=== PATIENT | male | born 1945 | race Caucasian/White ===

== ENCOUNTER 2017-09-01 10:30 | Outpatient (CLI) | payer MEDICARE ==
[2017-09-01] MEDS ORDERED: ISOVUE-370 76%-LOCM 1 ML ONE (14:41)
== END 2017-09-01 10:31 | disposition home or self-care (01) ==
LOC: BICCT 10:30
PROVIDERS: ATTEND Otolaryngology Plastic Surgery within the Head & Neck
DX: K11.20 Sialoadenitis, unspecified (principal); D49.0 Neoplasm of unspecified behavior of digestive system
CPT/HCPCS: 70491; 82565

== ENCOUNTER 2018-05-18 16:10 | Inpatient (IN) | payer MEDICARE ==
[2018-05-18 17:06] LABS: Troponin I 0.102 ng/mL (< 0.028)
[2018-05-18 17:23] LABS: Bilirubin Small (Negative); Blood, Urine Trace (Negative); Clarity CLOUDY (Clear); Glucose, Urine (Dipstick) Negative (Negative); Leukocyte Negative (Negative); Nitrite Negative (Negative); Protein, Urine (Dipstick) 100 mg/dL (Neg-Trace)
[2018-05-18 17:25] LABS: RBC/HPF 0-3 HPF (0-3); Squamous Epithelial 0-3 HPF (0-3)
[2018-05-18 17:28] LABS: Pathc Cast-AUWi Flag 5.16 (0-2.49)
[2018-05-18 17:43] LABS: Bacteria/HPF Rare-Few HPF (None Seen); Renal Epithelial 0-3 HPF (0-3)
[2018-05-18 17:44] LABS: Other Casts/LPF 0-3 COARSE GRAN LPF (0-3 Hyaline)
[2018-05-18] MEDS ORDERED: Ondansetron ODT 4 MG TAB SL PRN (19:43)
[2018-05-18] MEDS ORDERED: Ondansetron PF 4 MG/2 ML Vial IVP PRN (19:43)
[2018-05-18] MEDS ORDERED: Acetaminophen 325 MG TAB PO PRN (19:43)
[2018-05-18] MEDS ORDERED: Sodium Chloride 0.9% 1,000 ML IV SCH (19:43)
[2018-05-18 19:55] LABS: Troponin I 0.087 ng/mL (< 0.028)
[2018-05-18 20:01] VITALS: BMI 24.3
[2018-05-18] MEDS ORDERED: Carvedilol 6.25 MG TAB PO SCH (22:15)
[2018-05-18 23:30] LABS: Troponin I 0.072 ng/mL (< 0.028)
[2018-05-19] MEDS ORDERED: Senokot S 8.6-50 MG TAB PO PRN (02:54)
[2018-05-19] MEDS ORDERED: Acetaminophen 325 MG TAB PO PRN (02:54)
[2018-05-19] MEDS ORDERED: Guaifenesin DM 100-10/5 ML UDCUP PO PRN (02:54)
[2018-05-19] MEDS ORDERED: Morphine 2 MG/ML SYRINGE SLOW IVP PRN (02:55)
[2018-05-19] MEDS ORDERED: Furosemide 20 MG/2 ML VIAL SLOW IVP SCH (03:00)
--- NOTE | 2018-05-19 03:45 | HP ---
REASON FOR ADMISSION: CHF exacerbation, copd exacerbation. HISTORY OF PRESENTING ILLNESS: The patient gives history of having increasing cough with coughing up bloody stuff per patient from last 2 days. He is also getting short of breath on minimal exertion like even 50 yards. He had some mild chest discomfort yesterday and felt bloated in his chest per patient on the left side. No pain as such. No complaints of palpitation. He has known history of heart failure and follows up with Dr. Tobin in [place]. His last checkup was six months back. The patient does not recall the exact ejection fraction but knows that his heart is weak, and he has had prior hospitalization for heart failure. No complaints of fever, but had a temperature of 100.3 on arrival here. PAST MEDICAL AND SURGICAL HISTORY: History of CABG for one-vessel disease in the year 1989 at [facility]. He has had AICD with a pacemaker placed for low ejection fraction. 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 Left lung nodule, which was followed up and apparently is decreasing in size. CURRENT MEDICATIONS: Takes, 1. Coreg 6.25 mg twice daily. 2. Aspirin 81 mg daily. 3. Potassium chloride 20 mEq p.o. daily. 4. Enalapril 10 mg twice daily. 5. Lasix 40 mg p.o. daily. ALLERGIES: ALLERGIC TO PREVNAR 13 WITH WHICH HE DEVELOPED RIGHT SHOULDER PAIN. PERSONAL HISTORY: Quit smoking in 1988, but has smoked 2 to 3 packs a day of cigarettes and cigars for nearly 30 to 35 years prior to that. Does not abuse alcohol or drugs. FAMILY HISTORY: Mother at the age of 83 from natural causes. Father of massive IL at the age of 68 years. CODE STATUS: Full. REVIEW OF SYSTEMS: CONSTITUTIONAL: Negative for weight loss or gain, ability to conduct usual activities. SKIN: Negative for rash, itching. EYES: Negative for double vision, pain. ENT/MOUTH: Negative for nose bleeding, neck stiffness, pain, tenderness. CARDIOVASCULAR: Negative for palpitations, dyspnea on exertion, orthopnea. RESPIRATORY: Negative for shortness of breath, wheezing, cough, hemoptysis, fever or night sweats. GASTROINTESTINAL: Negative for poor appetite, abdominal pain, heartburn, nausea , vomiting, constipation, or diarrhea. GENITOURINARY: Negative for urgency, frequency, dysuria, nocturia. MUSCULOSKELETAL: Negative for pain, swelling. NEUROLOGIC/PSYCHIATRIC: Negative for anxiety, depression. ALLERGY/IMMUNOLOGIC: Negative for skin rash, bleeding tendency. Please see short and difficult for urgency, frequency, dysuria, nocturia. MUSCULOSKELETAL: Negative for pain, swelling. NEUROLOGIC/PSYCHIATRIC: Negative for anxiety, depression. ALLERGY/IMMUNOLOGIC: Negative for skin rash, bleeding tendency. PHYSICAL EXAMINATION: GENERAL: The patient is a 72-year-old male, who is currently not in any acute distress. VITAL SIGNS: Blood pressure 116/86, pulse 110 per minute, respiratory rate 22 per minute, temperature 100.3 degrees Fahrenheit, saturating 98% on room air. NECK: Supple. No elevated JVD. HEENT: Eyes; extraocular muscles intact. Pupils are reacting to light. Oral cavity, mucous membranes are moist. No exudates or congestion. CARDIOVASCULAR: S1 and S2 heard. Regular rhythm. RESPIRATORY: Air entry 1+ bilateral. Scattered wheezes plus there is basal rales plus. ABDOMEN: Soft. Bowel sounds heard. No tenderness, rigidity, or guarding. EXTREMITIES: No peripheral edema or calf tenderness. VASCULAR SYSTEM: Peripheral pulses 1+ bilateral. No ischemic ulcerations or gangrene. CENTRAL NERVOUS SYSTEM: No gross focal deficits noted. NEUROLOGIC: The patient is alert, awake, oriented well. PSYCHIATRIC: The patient's mood is euthymic. No hallucinations or delusions. LABORATORY DATA: EKG done shows a paced rhythm at 109 beats per minute. White count of 14, H and H 13 and 40, platelet count 191 with 79% neutrophils. BUN 27 and creatinine 1.20. BNP 2678. Troponin I is indeterminate, peaking up to 0.10. CK-MB 0.9. Albumin is 3.9. Influenza A and B antigens are negative. Chest x-ray done shows no acute cardiopulmonary abnormality. CLINICAL IMPRESSION AND PLAN: The patient will be admitted to telemetry for acute congestive heart failure exacerbation with mild chronic obstructive pulmonary disease exacerbation. The patient's systolic blood pressure is between 100 to 110. In view of this, he will be gently diuresed with Lasix. He will also be on DuoNeb q.6 hourly, empiric Levaquin in view of fever, cough with hemoptysis, and prior history of heavy smoking. We will place him on a small dose of steroids along with nebulization. He will be on aspirin, Coreg 3.125 mg twice daily, and lisinopril 2.5 mg daily. Echo with 2D Doppler for LV function will be obtained. We will also obtain a CT chest without contrast to look for any lesions with the patient's heavy history of smoking and prior history of lung nodule. Job ID: [id number] [facility]
[2018-05-19] MEDS: Furosemide 20 MG/2 ML VIAL SLOW IVP SCH ×2 (04:59→15:06)
[2018-05-19] MEDS: methylPREDNISolone Sod Succ 40 MG VIAL IVP SCH ×3 (05:01→20:00)
[2018-05-19] MEDS: Bacteriostatic Water 30 ML VIAL IVP SCH ×3 (05:01→20:00)
[2018-05-19 05:31] LABS: #Lymphocytes 0.7 thou/uL (1.20-3.40); #Monocytes 1.3 thou/uL (0.11-0.59); #Neutrophils 7.3 thou/uL (1.40-6.50); %Basophils 0.1 % (0.0-1.0); %Eosinophils 0.4 % (0.0-10.0); %Lymphocytes 7.4 % (21.0-51.0); %Monocytes 13.7 % (0.0-10.0); %Neutrophils 78.4 % (42.0-75.0); Hemoglobin 11.8 g/dL (14.0-18.0); Mean Corpuscular HGB CONC 32.8 g/dL (32.0-36.0); Mean Corpuscular Hemoglobin 29.9 pg (27.0-31.0); Mean Platelet Volume 8.5 fL (7.4-10.4); Platelet Count 145 thou/uL (130-400); RBC Distribution Width 13.1 % (11.5-14.5); Red Blood Cell (RBC) Count 3.94 mill/uL (4.70-6.10); White Blood Cell (WBC) Count 9.3 thou/uL (4.8-10.8)
[2018-05-19 05:50] LABS: Anion Gap 10 mmol/L (10-20); BUN (Urea Nitrogen) 28 mg/dL (8.4-25.7); Calc. Creatinine Clearance 71 mL/min (70-130); Calcium 8.7 mg/dL (7.8-10.44); Carbon Dioxide 26 mmol/L (23-31); Chloride 105 mmol/L (98-107); Estimated GFR-MDRD 71; Glucose 154 mg/dL (80-115); Sodium 137 mmol/L (136-145)
[2018-05-19] MEDS ORDERED: Metoclopramide HCl 10 MG/2 ML VIAL IVP PRN (07:42)
[2018-05-19] MEDS ORDERED: Loperamide HCl 2 MG CAP PO PRN (07:42)
[2018-05-19] MEDS ORDERED: hydrALAZINE 20 MG/ML VIAL SLOW IVP PRN (07:42)
[2018-05-19] MEDS ORDERED: Loratadine 10 MG TAB PO PRN (07:42)
[2018-05-19] MEDS ORDERED: Zolpidem Tartrate 5 MG TAB PO PRN (07:42)
[2018-05-19] MEDS ORDERED: Eucerin (Mineral Oil/Petrolatum,White) 30 gm Jar TOP PRN (07:42)
[2018-05-19] MEDS ORDERED: Cepastat Lozenges 1 LOZ PO PRN (07:42)
[2018-05-19] MEDS ORDERED: Diabetic Tussin 200 MG/10 ML UDCUP PO PRN (07:42)
[2018-05-19] MEDS ORDERED: Sodium Chloride 0.65% Nasal 44 ML BOT EA NARE PRN (07:42)
[2018-05-19] MEDS ORDERED: Artificial Tears 18 DROP/0.9 ML EA EYE PRN (07:42)
--- NOTE | 2018-05-19 09:55 | CT ---
FCT thorax noncontrast: 05/19/2018 HISTORY: 72-year-old male with cough and hemoptysis. Pulmonary nodule. COMPARISON: 12/05/2013 FINDINGS: The previously described 1.3 x 1.1 cm noncalcified pulmonary nodule in the left lower lobe is unchang ed, and therefore benign. There is a new finding of broad region of alveolar infiltrate-like density at the posterior aspect of the right lower lobe, mostly involving basilar segment. This does not involve the superior segment o f the right lower lobe. The cardiac size is increased, larger than on the previous CT. Pacemaker again noted. New tiny right pleural effusion. No pulmonary edema. Multiple mildly and moderately enlarged mediastinal lymph nodes , larger and more numerous than previously. For example, the previously mentioned 0.8 x 1.3 cm right paratracheal lymph node currently measures 2.5 x 2 cm. IMPRESSION: 1. Right lower lobe infiltrate. 2. Small right pleural effusion. 3. Cardiomegaly. 4. Mediastinal lymphadenopathy. 5. Left lower lobe pulmonary nodule is unchanged and benign.
--- NOTE | 2018-05-19 10:29 | PDOC.PN ---
- Subjective Encounter Start Date: 05/19/18 Encounter Start Time: 08:00 Patient seen and examined. No new complaints. No overnight events - Objective Resuscitation Status - Order Detail: 05/19/18 02:51 Resuscitation Status Routine Resuscitation Status: FULL: Full Resuscitation MAR Reviewed: Yes Vital Signs & Weight: Vital Signs (12 hours) Temp Pulse Resp BP Pulse Ox 05/19/18 06:44 97 20 05/19/18 04:11 94 L 05/19/18 04:00 99.2 F 87 17 92/64 95 Weight Weight 164 lb 11.2 oz Result Diagrams: 05/19/18 04:57 05/19/18 04:56 Radiology Reviewed by me: Yes EKG Reviewed by me: Yes Phys Exam - Physical Examination Constitutional: NAD HEENT: PERRLA, moist MMs, sclera anicteric Neck: no JVD, supple Respiratory: no wheezing, no rales, no rhonchi Cardiovascular: no significant murmur, no rub Gastrointestinal: soft, non-tender, no distention, positive bowel sounds Musculoskeletal: no edema, pulses present Neurological: non-focal, normal sensation Lymphatic: no nodes Psychiatric: normal affect, A&O x 3 Skin: no rash, normal turgor Dx/Plan (1) Acute on 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 failure Code(s): I50.43 - ACUTE ON CHRONIC COMBINED SYSTOLIC AND DIASTOLIC HRT FAIL Status: Acute (2) Type [address] elevation Code(s): I21.A1 - MYOCARDIAL INFARCTION TYPE 2 Status: Acute (3) AICD (automatic cardioverter/defibrillator) present Code(s): Z95.810 - PRESENCE OF AUTOMATIC (IMPLANTABLE) CARDIAC DEFIBRILLATOR Status: Chronic (4) Anemia, normocytic normochromic Code(s): D64.9 - ANEMIA, UNSPECIFIED Status: Chronic (5) CAD (coronary artery disease) Code(s): I25.10 - ATHSCL HEART DISEASE OF [place] CORONARY ARTERY W/O ANG PCTRS Status: Chronic (6) H/O solitary pulmonary nodule Code(s): Z87.898 - PERSONAL HISTORY OF OTHER SPECIFIED CONDITIONS Status: Chronic (7) Hypertension Code(s): I10 - ESSENTIAL (PRIMARY) HYPERTENSION Status: Chronic (8) Hyperuricemia Code(s): E79.0 - HYPERURICEMIA W/O SIGNS OF INFLAM ARTHRIT AND TOPHACEOUS DIS Status: Chronic (9) Tobacco abuse Code(s): Z72.0 - TOBACCO USE Status: Chronic (10) Pneumonia Code(s): J18.9 - PNEUMONIA, UNSPECIFIED ORGANISM Status: Acute - Plan cont current plan of care, continue antibiotics * medication reviewed as below * symptomatic treatment * continue levaquin * continue lasix * echo pending. * allopurinol daily Review of Systems - Review of Systems ENT: negative: Ear Pain, Ear Discharge, Nose Pain, Nose Discharge, Nose Congestion, Mouth Pain, Mouth Swelling, Throat Pain, Throat Swelling, Other Respiratory: negative: Cough, Dry, Shortness of Breath, Hemoptysis, SOB with Excertion, Pleuritic Pain, Sputum, Wheezing Cardiovascular: negative: chest pain, palpitations, orthopnea, paroxysmal nocturnal dyspnea, edema, light headedness, other Gastrointestinal: negative: Nausea, Vomiting, Abdominal Pain, Diarrhea, Constipation, Melena, Hematochezia, Other Genitourinary: negative: Dysuria, Frequency, Incontinence, Hematuria, Retention , Other Musculoskeletal: negative: Neck Pain, Shoulder Pain, Arm Pain, Back Pain, Hand Pain, Leg Pain, Foot Pain, Other Skin: negative: Rash, Lesions, Jeovany, Bruising, Other - Medications/Allergies Allergies/Adverse Reactions: Allergies Allergy/AdvReac Type Severity Reaction Status Date / Time pneumococcal vaccine Allergy Verified 05/18/18 19:56 [From Prevnar 13 (PF)] Medications: Current Medications Acetaminophen (Tylenol) 650 mg PO Q4H PRN PRN Reason: Headache/Fever/Mild Pain (1-3) Albuterol/Ipratropium (Duoneb) 3 ml NEB [id number] [facility] Last Admin: 05/19/18 06:44 Dose: 3 ml Allopurinol (Zyloprim) 100 mg PO DAILY [facility] Artificial Tears (Tears Naturale) 2 drop EA EYE PRN PRN PRN Reason: Dry Eyes Aspirin (Aspirin Chewable) 81 mg PO DAILY [facility] Carvedilol (Coreg) 3.125 mg PO BID [facility] Enoxaparin Sodium (Lovenox) 40 mg SC 0900 [facility] Famotidine (Pepcid) 20 mg PO BID [facility] Furosemide (Lasix) 20 mg SLOW IVP 0600,1400 [facility] Last Admin: 05/19/18 04:59 Dose: Not Given Guaifenesin (Robitussin Sf) 200 mg PO Q4H PRN PRN Reason: Cough Guaifenesin/Dextromethorphan (Robitussin Dm) 15 ml PO Q4H PRN PRN Reason: Cough Hydralazine HCl (Apresoline) 10 mg SLOW IVP Q4H PRN PRN Reason: SBP > 180 and HR < 70 Levofloxacin 500 mg/ Device 100 mls @ 100 mls/hr IVPB Q24HR [facility] Last Admin: 05/19/18 03:16 Dose: 100 mls Lisinopril (Zestril) 2.5 mg PO DAILY [facility] Loperamide HCl (Imodium) 2 mg PO PRN PRN PRN Reason: Diarrhea/Loose Stools Loratadine (Claritin) 10 mg PO DAILYPRN PRN PRN Reason: Sinus Symptoms Methylprednisolone Sodium Succinate (Solu-Medrol) 20 mg IVP Q8HR [facility] Last Admin: 05/19/18 05:01 Dose: 20 mg Metoclopramide HCl (Reglan) 5 mg IVP Q4H PRN PRN Reason: Nausea Mineral Oil/White Petrolatum (Eucerin Cream) 0 gm TOP BIDPRN PRN PRN Reason: Dry Skin Morphine Sulfate (Morphine) 2 mg SLOW IVP Q4H PRN PRN Reason: Chest Pain/BP Elevations Senna/Docusate Sodium (Senokot S) 2 tab PO BID PRN PRN Reason: Constipation Sodium Chloride (Flush - Normal Saline) 10 ml IVF Q12HR [facility] Sodium Chloride (Flush - Normal Saline) 10 ml IVF PRN PRN PRN Reason: Saline Flush Sodium Chloride ([place] Nasal [place] 0.65%) 0 ml EA NARE QIDPRN PRN PRN Reason: Nasal Congestion Sterile Water (Bacteriostatic Water) 1 ml IVP Q8HR [facility] Last Admin: 05/19/18 05:01 Dose: 1 ml Throat Lozenges (Cepastat Lozenges) 1 tia PO Q2H PRN PRN Reason: Sore Throat Zolpidem Tartrate (Ambien) 5 mg PO HSPRN PRN PRN Reason: Insomnia
[2018-05-19] MEDS: Famotidine 20 MG TAB PO SCH ×2 (10:37→19:57)
[2018-05-19] MEDS: Aspirin Chewable 81 MG TAB PO SCH (10:37)
[2018-05-19] MEDS: Enoxaparin Sodium 40 MG/0.4 ML SYRINGE SC SCH (10:38)
[2018-05-19] MEDS: Allopurinol 100 MG TAB PO SCH (10:40)
[2018-05-19] MEDS: Lisinopril 2.5 MG TAB PO SCH (10:40)
[2018-05-19] MEDS: Carvedilol 3.125 MG TAB PO SCH ×2 (10:40→19:57)
--- NOTE | 2018-05-19 21:16 | CON ---
DATE OF CONSULTATION: 05/19/2018 REASON FOR CONSULTATION: Ojtkg-zq-nfdohia systolic heart failure. HISTORY OF PRESENT ILLNESS: Mr. Carter is a 72-year-old gentleman with previous history of CAD, status post bypass surgery and ischemic cardiomyopathy. He is mainly followed in [place]. His main complaint is shortness of breath. No lower extremity edema present. No chest pain noted. He has had decreased exercise tolerance. He mainly had increase in abdominal girth. He was seen in [place] and was recommended he proceed to the emergency room. PAST MEDICAL HISTORY: As above including the parotid mass, but patient has opted not to have any workup, hypertension, hyperlipidemia, vasectomy. HOME MEDICATIONS: 1. Coreg. 2. Aspirin. 3. Potassium. 4. Enalapril. 5. Lasix. ALLERGIES: PREVNAR. SOCIAL HISTORY: Previous tobacco use. FAMILY HISTORY: Negative for CAD. REVIEW OF SYSTEMS: Ten-point review of systems is reviewed and as above, otherwise negative. PHYSICAL EXAMINATION: GENERAL: Patient is a pleasant male who is in no acute distress. The patient appears their stated age. VITAL SIGNS: Blood pressure 99/64, pulse 90, temperature 98.1. NEUROLOGIC: The patient is alert and oriented x3 with no focal neurologic deficits. HEENT: Sclerae without icterus. Mouth has moist mucous membranes with normal pallor. NECK: No JVD. Carotid upstroke brisk. No bruits bilaterally. LUNGS: Crackles noted bilaterally. BACK: No scoliosis or kyphosis. CARDIAC: Regular rate and rhythm with normal S1 and S2. No S3 or S4 noted. No significant rubs, murmurs, thrills, or gallops noted throughout the precordium. PMI is not displaced. There is no parasternal heave. ABDOMEN: Soft, nontender, nondistended. No peritoneal signs present. No hepatosplenomegaly. No abnormal striae. EXTREMITIES: 2+ femoral and 2+ dorsalis pedis pulses. No cyanosis, clubbing, or edema. SKIN: No gross abnormalities. PERTINENT LABORATORY DATA: Hemoglobin 11.8, hematocrit 35.9, creatinine 1.03. Peak troponin 0.087. Echo Doppler shows LVEF 10-15 percent. IMPRESSION: 1. Rlyry-jp-adarkpu systolic heart failure. 2. Ischemic cardiomyopathy. 3. Hypotension. RECOMMENDATIONS: 1. Continue Coreg as prescribed. 2. Recommend Lasix at a lower dose given blood pressure. 3. Restrict fluids and sodium. 4. Educate on sodium restriction and fluid restriction at home. Job ID: [id number]
[2018-05-20] MEDS: Furosemide 20 MG/2 ML VIAL SLOW IVP SCH ×2 (05:24→13:56)
[2018-05-20] MEDS: Bacteriostatic Water 30 ML VIAL IVP SCH (05:25)
[2018-05-20] MEDS: methylPREDNISolone Sod Succ 40 MG VIAL IVP SCH (05:25)
[2018-05-20] MEDS: Famotidine 20 MG TAB PO SCH (10:57)
[2018-05-20] MEDS: Carvedilol 3.125 MG TAB PO SCH ×2 (10:58→20:45)
[2018-05-20] MEDS: Aspirin Chewable 81 MG TAB PO SCH (10:58)
[2018-05-20] MEDS: Enoxaparin Sodium 40 MG/0.4 ML SYRINGE SC SCH (10:59)
[2018-05-20] MEDS: Allopurinol 100 MG TAB PO SCH (10:59)
[2018-05-20] MEDS: Lisinopril 2.5 MG TAB PO SCH (11:05)
--- NOTE | 2018-05-20 11:09 | PDOC.PN ---
- Subjective Encounter Start Date: 05/20/18 (f/u pneumonia) Encounter Start Time: 11:08 Subjective: Pt reports feeling a lot better. Had upper abd pain on admission and -: states this is improved. Denies any n/v/significant cough or other -: concerns. - Objective Resuscitation Status - Order Detail: 05/19/18 02:51 Resuscitation Status Routine Resuscitation Status: FULL: Full Resuscitation Vital Signs & Weight: Vital Signs (12 hours) Temp Pulse Resp BP Pulse Ox 05/20/18 07:36 89 16 05/20/18 03:52 97.5 F L 93 16 100/69 98 05/20/18 00:38 92 16 94 L Weight Weight 172 lb 14.4 oz I&O: 05/19/18 05/20/18 05/21/18 06:59 06:59 06:59 Intake Total 840 Output Total 1100 Balance -260 Result Diagrams: 05/19/18 04:57 05/19/18 04:56 EKG Reviewed by me: Yes (tele pacemaker 80-90's) Phys Exam - Physical Examination Constitutional: NAD Respiratory: no wheezing, no rales, no rhonchi Cardiovascular: RRR, no significant murmur Gastrointestinal: soft, non-tender, no distention, positive bowel sounds Musculoskeletal: no edema Neurological: non-focal Psychiatric: normal affect Skin: no rash Dx/Plan (1) Acute on 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 failure Code(s): I50.43 - ACUTE ON CHRONIC COMBINED SYSTOLIC AND DIASTOLIC HRT FAIL Status: Acute (2) Pneumonia Code(s): J18.9 - PNEUMONIA, UNSPECIFIED ORGANISM Status: Acute Qualifiers: Laterality: right Lung location: lower lobe of lung (3) CAD (coronary artery disease) Code(s): I25.10 - ATHSCL HEART DISEASE OF [place] CORONARY ARTERY W/O ANG PCTRS Status: Chronic (4) Hypertension Code(s): I10 - ESSENTIAL (PRIMARY) HYPERTENSION Status: Chronic (5) Hyperuricemia Code(s): E79.0 - HYPERURICEMIA W/O SIGNS OF INFLAM ARTHRIT AND TOPHACEOUS DIS Status: Chronic - Plan * Appreciate cardiology directing diuresis for pt with very low systolic function * * For pneumonia - pt without wheezing/coughing on exam - will change to oral steroids starting tomorrow - anticipate this can stop if he continues to do well. Change levoquin to oral and total of 5 days including IV doses he received * * no change to other meds * * dvt prophy - ambulatory * gi prophy - not indicated * code status full * * reviewed plan of care with patient, no questions or further needs at end of eval * pt remains at high risk in current condition. * anticipate d/c when cleared by cardiology.
--- NOTE | 2018-05-20 13:34 | PDOC.CTH ---
Cardiology Progress Note - Subjective 1. Acute on chronic systolic CHF 2. Severe ICMO 3. RLL PNA 4. CAD s/p CABG Patient states overall doing well. Continue diuresis and antibiotics. Will obtain records from previous travel rn. May benefit from upgrade to BiV ICD as an outpatient later on. - Objective Vital Signs Temp Pulse Resp BP Pulse Ox 05/20/18 11:05 89 05/20/18 07:36 89 16 05/20/18 03:52 97.5 F L 93 16 100/69 98 Weight 172 lb 14.4 oz 05/19/18 05/20/18 05/21/18 06:59 06:59 06:59 Intake Total 840 Output Total 1100 Balance -260 - Labs Result Diagrams: 05/19/18 04:57 05/19/18 04:56 Troponin/CKMB Troponin I 0.072 ng/mL (< 0.028) H 05/18/18 22:50
[2018-05-21] MEDS: Furosemide 20 MG/2 ML VIAL SLOW IVP SCH (05:38)
[2018-05-21 05:56] LABS: #Lymphocytes 1.1 thou/uL (1.20-3.40); #Monocytes 1.2 thou/uL (0.11-0.59); #Neutrophils 8.3 thou/uL (1.40-6.50); %Basophils 0.1 % (0.0-1.0); %Eosinophils 0.1 % (0.0-10.0); %Lymphocytes 10.4 % (21.0-51.0); %Neutrophils 78.4 % (42.0-75.0); Hemoglobin 11.5 g/dL (14.0-18.0); Mean Corpuscular HGB CONC 32.6 g/dL (32.0-36.0); Mean Corpuscular Hemoglobin 30.3 pg (27.0-31.0); Mean Corpuscular Volume 92.7 fL (78.0-98.0); Mean Platelet Volume 8.3 fL (7.4-10.4); Platelet Count 174 thou/uL (130-400); RBC Distribution Width 13.1 % (11.5-14.5); White Blood Cell (WBC) Count 10.6 thou/uL (4.8-10.8)
[2018-05-21 06:20] LABS: Anion Gap 10 mmol/L (10-20); BUN (Urea Nitrogen) 39 mg/dL (8.4-25.7); Calc. Creatinine Clearance 59 mL/min (70-130); Carbon Dioxide 28 mmol/L (23-31); Chloride 105 mmol/L (98-107); Estimated GFR-MDRD 59; Glucose 117 mg/dL (80-115); Potassium 4.1 mmol/L (3.5-5.1); Sodium 139 mmol/L (136-145)
[2018-05-21] MEDS ORDERED: predniSONE 20 MG TAB PO SCH ×2 (08:00)
--- NOTE | 2018-05-21 08:34 | PDOC.PN ---
- Subjective Encounter Start Date: 05/21/18 Encounter Start Time: 08:32 Subjective: comfortable off O2 - Objective Resuscitation Status - Order Detail: 05/19/18 02:51 Resuscitation Status Routine Resuscitation Status: FULL: Full Resuscitation MAR Reviewed: Yes Vital Signs & Weight: Vital Signs (12 hours) Temp Pulse Resp BP Pulse Ox 05/21/18 07:21 89 16 93 L 05/21/18 04:00 97.3 F L 94 16 95/56 L 94 L Weight Weight 162 lb 8 oz I&O: 05/20/18 05/21/18 05/22/18 06:59 06:59 06:59 Intake Total 840 880 Output Total 1100 1170 Balance -260 -290 Result Diagrams: 05/21/18 05:24 05/21/18 05:24 Phys Exam - Physical Examination Neck: no JVD Respiratory: clear to auscultation bilateral Cardiovascular: RRR, no significant murmur Gastrointestinal: soft, positive bowel sounds Musculoskeletal: no edema Dx/Plan (1) Acute on 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 failure Code(s): I50.43 - ACUTE ON CHRONIC COMBINED SYSTOLIC AND DIASTOLIC HRT FAIL Status: Acute (2) Pneumonia Code(s): J18.9 - PNEUMONIA, UNSPECIFIED ORGANISM Status: Acute Qualifiers: Pneumonia type: due to Pseudomonas Laterality: right Lung location: lower lobe of lung Qualified Code(s): J15.1 - Pneumonia due to Pseudomonas (3) Anemia, normocytic normochromic Code(s): D64.9 - ANEMIA, UNSPECIFIED Status: Chronic (4) CAD (coronary artery disease) Code(s): I25.10 - ATHSCL HEART DISEASE OF [place] CORONARY ARTERY W/O ANG PCTRS Status: Chronic Qualifiers: Coronary Disease-Associated Artery/Lesion type: [place] artery [place] vs. transplanted heart: [place] heart Associated angina: without angina Qualified Code(s): I25.10 - Atherosclerotic heart disease of [place] coronary artery without angina pectoris (5) Hypertension Code(s): I10 - ESSENTIAL (PRIMARY) HYPERTENSION Status: Chronic - Plan po meds, discuss with cardiology * .
--- NOTE | 2018-05-21 08:38 | PDOC.CTH ---
Cardiology Progress Note - Subjective No overnight events. Doing well. No CP. Mild cough. Breathing stable. - Objective Vital Signs Temp Pulse Resp BP Pulse Ox 05/21/18 07:21 89 16 93 L 05/21/18 04:00 97.3 F L 94 16 95/56 L 94 L Weight 162 lb 8 oz 05/20/18 05/21/18 05/22/18 06:59 06:59 06:59 Intake Total 840 880 Output Total 1100 1170 Balance -260 -290 - Physical Examination General/Neuro: alert & oriented x3 Neck: no JVD present Lungs: CTA Heart: RRR Abdomen: NT/ND - Labs Result Diagrams: 05/21/18 05:24 05/21/18 05:24 Troponin/CKMB Troponin I 0.072 ng/mL (< 0.028) H 05/18/18 22:50 - Assessment/Plan 1. Acute on chronic systolic CHF 2. Severe ICMO 3. RLL PNA 4. CAD s/p CABG Stable. Ok for discharge. Needs f/u with CHF clinic within the next 1-2 weeks. F /U with us in the next 2-3 weeks.
[2018-05-21] MEDS: Carvedilol 3.125 MG TAB PO SCH (09:02)
[2018-05-21] MEDS: Aspirin Chewable 81 MG TAB PO SCH (09:02)
[2018-05-21] MEDS: Allopurinol 100 MG TAB PO SCH (09:02)
[2018-05-21 11:49] VITALS: BP 119/85; TEMP 97.9
--- NOTE | 2018-05-21 12:56 | DIS ---
DATE OF ADMISSION: 05/18/2018 DATE OF DISCHARGE: 05/21/2018 Discharged to home. PRIMARY CARE PROVIDER: Dr. Elsie Vásquez. FINAL DIAGNOSES: Acute on chronic systolic heart failure; pneumonia, right lower lobe; coronary artery disease; hypertension. DISCHARGE MEDICATIONS: 1. Aspirin 81 mg a day. 2. Coreg 3.125 mg a day. 3. Enalapril 10 mg a day. 4. Lasix 20 mg p.o. b.i.d. 5. Levaquin 500 mg p.o. daily x7 days. 6. Potassium chloride 20 mEq p.o. daily. ALLERGIES: PNEUMOCOCCAL VACCINE, PREVNAR. DIET: Heart healthy, no added salt. CODE STATUS: Full. PENDING AT TIME OF DISCHARGE: Nothing. CONSULTATION: Dr. Sg Blanc, Cardiology. PROCEDURES: None. HOSPITAL COURSE: The patient with cough with some hemoptysis, shortness of breath, has ischemic cardiomyopathy, followed up in [place]. A CT scan revealed a right lower lobe infiltrate with small effusion. His initial laboratory, comp metabolic profile showed a mild elevation of BUN at 28, blood sugar 154. The troponins were elevated at 0.1, 0.087, 0.072. He was started on IV antibiotics. Blood cultures and urine culture were unrevealing. He was seen in consultation by Dr. Sg Blanc. Because of his low blood pressure, his enalapril was reduced, his Coreg was reduced. He was put on fluid restriction, sodium restriction. He has improved dramatically during his hospital stay. His chest is now clear. His vital signs are stable. Blood pressure 100/68, pulse 88, respirations 13. His chest is clear. His echocardiogram revealed EF of 10% to 15%. He is being discharged on current medications, oral antibiotics, to be followed up in about two weeks by Dr. Blanc, there is concern that although he has a defibrillator pacemaker that his cardiac function will be improved by biventricular pacemaker, which will be determined as an outpatient. I have discussed all of this with the patient. He is comfortable and he is being discharged. Job ID: [id number]
== END 2018-05-21 13:28 | disposition home or self-care (01) | DRG 291 ==
LOC: ERS 16:10 → 2NO 19:39
PROVIDERS: ADMIT Family Medicine; ATTEND Family Medicine
DX: I11.0 Hypertensive heart disease with heart failure (principal); J18.1 Lobar pneumonia, unspecified organism; J44.1 Chronic obstructive pulmonary disease with (acute) exacerbation; E78.5 Hyperlipidemia, unspecified; I50.23 Acute on chronic systolic (congestive) heart failure; I25.5 Ischemic cardiomyopathy; I25.10 Atherosclerotic heart disease of native coronary artery without angina pectoris; E79.0 Hyperuricemia without signs of inflammatory arthritis and tophaceous disease; D64.9 Anemia, unspecified; Z95.810 Presence of automatic (implantable) cardiac defibrillator; Z79.82 Long term (current) use of aspirin; Z88.8 Allergy status to other drugs, medicaments and biological substances; Z87.891 Personal history of nicotine dependence; Z88.7 Allergy status to serum and vaccine
CPT/HCPCS: 36415; 71250; 80048; 81003; 81015; 83605; 84443; 84550; 85025; 87040; 87086; 93306; 93798; 94640; J1650; J1940; J1956; J2920; J7620

== ENCOUNTER 2018-12-19 13:36 | Outpatient (CLI) | payer MEDICARE | END 2018-12-19 13:37 | disposition home or self-care (01) | LOC: ULT 13:36 | PROVIDERS: ATTEND Internal Medicine | DX: I47.2 Ventricular tachycardia (principal); I42.8 Other cardiomyopathies; I08.3 Combined rheumatic disorders of mitral, aortic and tricuspid valves | CPT/HCPCS: 93306 ==